=== PATIENT | male | born 1945 | race Caucasian/White ===

== ENCOUNTER 2020-05-03 13:39 | Inpatient (IN) | payer MEDICARE, SELFPAY ==
[2020-05-03 13:42] VITALS: BP 138/78; PULSE 81; RESP 17; TEMP 36.6; O2SAT 98; BMI 24.3
[2020-05-03 14:59] LABS: Absolute Lymphocyte Count 0.84 X10^3/uL (0.83-4.51); Absolute Neutrophil Count 3.4 X10^3/uL (2.0-7.7); Basophil# 0.04 X10^3/uL; Basophil% 0.8 % (0-1); Eosinophil# 0.09 X10^3/uL; Eosinophils% 1.9 % (0-5); Hematocrit 41.8 % (40-54); Hemoglobin 13.5 g/dL (13.0-16.5); Lymphocyte # 0.84 X10^3/ul (4.0); Lymphocyte % 17.3 % (19-41); Mean Corp Hgb Conc 32.3 g/dL (32-36); Mean Corpuscular Hgb 32.3 pg (27.0-32.0); Mean Platelet Vol. 8.5 fl (6.2-12.0); Monocyte# 0.48 X10^3/uL; Monocyte% 9.9 % (0-10); NRBC Flagged by Analyzer 0 % (0-5); Neutrophil # 3.38 X10^3/uL (2.7-7.7); Neutrophil % 69.7 % (47-70); Platelet Count 263 K/mm3 (150-450); RBC Distribution Width CV 13.7 % (11.6-14.6); RBC Distribution Width SD 50.4 fl (35.1-43.9); Red Blood Count 4.18 M/mm3 (4.6-6.2); White Blood Count 4.9 K/mm3 (4.4-11.0)
[2020-05-03 15:21] LABS: ALB/GLOB Ratio 0.9 RATIO (0.9-2.4); AST(SGOT) 70 U/L (15-37); Alanine Aminotransfer ALT/SGPT 49 U/L (16-61); Albumin, Serum 3.5 g/dL (3.2-5.0); Alkaline Phosphatase 72 U/L (45-117); Anion Gap 5 (5-15); BUN 8 mg/dL (7-18); BUN/Creat Ratio 10.7 RATIO (10-20); Chloride 104 mmol/L (98-107); Creatinine, Serum 0.75 mg/dL (0.70-1.30); EST Glomerular Filtration Rate 108 mL/min (>60); Est Glom Filt Rate - Afr Amer 130 mL/min (>60); Estimated Creatinine Clearance 58.76 ml/min; Globulin 3.9 g/dL (2.2-4.2); Glucose 82 mg/dL (74-106); Protein, Total 7.4 g/dL (6.4-8.2); Sodium Level 139 mmol/L (136-145)
--- NOTE | 2020-05-03 15:34 | ED.VIS.GEN ---
History of Present Illness Chief Complaint: Substance Abuse Informant: Patient Narrative: Patient is a 74-year-old male who presents to the emergency department for detoxification from alcohol abuse. He states that he drinks 20 ounces of vodka per day. He has been doing this for his entire life. He states he is never gone through withdrawal as he has never stopped drinking. His last drink was a few hours ago. Currently denies any symptoms whatsoever. He denies any issues with drug abuse. Does not smoke cigarettes. His reasoning for wanting to quit at this point he states that it now feels like a life and situation to him. Past Medical History - Allergies and Home Meds Allergies/Adverse Reactions: Allergies No Known Allergies Allergy (Verified 05/03/20 13:41) Prior records reviewed: Yes Past Medical History: None Smoking Status: Never smoker Alcohol: Heavy Drugs: None - Family History Maternal Family History: Reports: No pertinent history Paternal Family History: Reports: No pertinent history Review of Systems All systems negative except as indicated General: Denies: Chills, Fever, Sweats Eyes: Reports: Diplopia - Has had a few episodes but none currently.. Denies: Visual changes - bilaterally ENT: Denies: Rhinorrhea, Sore throat Cardiovascular: Denies: Chest pain, Palpitations Respiratory: Denies: Dyspnea, Cough, Dyspnea on exertion Gastrointestinal: Denies: Abdominal pain, Nausea, Vomiting, Diarrhea Genitourinary: Denies: Dysuria, Hematuria, Frequency Musculoskeletal: Denies: Back pain, Extremity Pain Skin: Denies: Rash, Wounds Neurological: Denies: Headache, Weakness, Numbness Physical Exam Vital Signs/Narrative: Vital Signs Temp Pulse Resp BP Pulse Ox 05/03/20 13:42 97.8 F 81 17 138/78 H 98 General: Well nourished, Well developed, No Acute Distress Head: Normocephalic, Atraumatic Eyes: Perrl, EOMI ENT: Moist mucous membranes, No rhinorrhea Neck: Supple, Nontender Cardiovascular: Regular rate, Regular rhythm, No murmurs Respiratory: No distress, CTA bilaterally, Chest nontender Abdomen: Soft, Nontender, Nondistended, Normal bowel sounds Back: Nontender, Normal Inspection Extremities: Nontender, No edema Skin: Normal color, No rash Neurological: Alert, Oriented x3, Cranial nerves II-XII grossly intact, Normal Strength, Normal Sensation Psychological: Normal affect, Normal Mood Diagnostic/Tx/Re-eval - Medical Decision Making Patient presents to the ED for requesting to detox from alcohol abuse. Upon arrival to the ED vital signs within normal limits and he is in no acute distress. Basic lab work being obtained. We will plan on admission to the hospital for further evaluation and management. Patient understands and is agreeable this plan. Lab work did not reveal any significant acute abnormality. He is currently intoxicated with a blood alcohol level of 200. He otherwise has been stable throughout ED stay. Case discussed with hospitalist. ED Disposition - Plan for ED Patient: Disposition: Acute [facility] Diagnosis: Alcohol abuse, Alcohol intoxication
[2020-05-03 15:53] LABS: Amphetamine Urine VISTA NEGATIVE (<1000 ng/mL); Barbiturate Urine VISTA NEGATIVE (< 200 ng/mL); Benzodiazepine Urine VISTA NEGATIVE (< 200 ng/mL); Cocaine Urine VISTA NEGATIVE (< 300 ng/mL); Ecstacy Urine VISTA NEGATIVE (< 500 ng/mL); Methadone Urine VISTA NEGATIVE (< 300 ng/mL); PCP Urine VISTA NEGATIVE (< 25 ng/mL); THC Urine VISTA NEGATIVE (< 50 ng/mL); Vista UDS pH Range 6
--- NOTE | 2020-05-03 16:23 | CM.ED ---
Social Work Consult: Substance Abuse Informant: Self Referral Met with patient in room. Introduced self and social science teacher role. Patient agreeable to speaking with this social science teacher. Patient voices to be seeking medical management of withdrawal symptoms. Patient reports substance of choice is alcohol (vodka). Patient denies any history of detox. Patient states to have reached out to substance abuse resources in late 2019 and has a support network. Patient lives at home with spouse. Patient states main motivation for seeking detox is due to medical complications from drinking. Active support and listening provided. Patient verbally agreeing to [facility] program. Telephone call to Lolis Pope. Lolis updated on patient admission. Lolis pat plan to see patient tomorrow. Silverio Dickinson MSW, REINIER-S
[2020-05-03 16:27] VITALS: BP 149/84; PULSE 89; RESP 18; TEMP 36.7; O2SAT 97
[2020-05-03 16:58] VITALS: BMI 23.9
[2020-05-03 17:04] VITALS: BMI 24.0
--- NOTE | 2020-05-03 17:19 | PCM.HP.STD ---
History of Present Illness Date of Admission: 05/03/20 Chief Complaint: acute alcohol withdrawal The patient is a 74 year old M with a past medical history of chronic alcohol dependence. He was admitted through the ED on 05/03/2020 acute alcohol withdrawal. Patient states he has been drinking for as long as he remembers and usually drinks 20 ounces of vodka daily mixed with lemonade. He has never gone through withdrawal as he has never stopped drinking. His last drink was on the afternoon of the day of admission. Patient states he recently had a checkup done and he was told that his liver enzymes were abnormal. He says he has been trying to get help with detox but was told not to quit cold turkey on his own and that is why he is continued drinking. He denied any fever, chills, palpitations or dizziness, nausea vomiting, chest pain, tremors or diarrhea. Review of systems otherwise negative. He does not use any recreational drugs and does not smoke. ED, vitals showed temperature of 98.1 Fahrenheit with blood pressure of 149/84 and pulse rate of 89 as well as respiratory rate of 18. Pulse ox was 97% on room air. Chemistry was essentially unremarkable and liver enzymes showed AST of 70 with ALT of 49 and total bilirubin of 0.5. CBC was essentially unremarkable today. Urine tox was negative and alcohol level was 200. He has been admitted to manage for acute alcohol withdrawal. [] Past Medical History Allergies No Known Allergies Allergy (Verified 05/03/20 13:41) Home Medications: Ambulatory Orders Medication Instructions Recorded Cyanocobalamin (Vitamin B-12) 1,000 mcg PO DAILY 05/03/20 [Vitamin B-12] Oxybutynin [Ditropan] 5 mg PO TID 05/03/20 Psyllium Husk [Metamucil] 0.4 gm PO DAILY 05/03/20 Surgical History: total knee arthroplasty Psychiatric History: No pertinent psych hx Lives: With Family Smoking Status: Never smoker Tobacco Use: Non-smoker Alcohol: Heavy Drugs: None - *Family History Maternal History Items: No pertinent history Paternal History Items: No pertinent history Review of Systems Constitutional: Denies: Chills, Fever, Malaise, Weakness, Weight Change, Fatigue Eyes: Denies: Blurred vision HEENT: Denies: Head Aches, Sinus Congestion, Sinus Drainage Cardiovascular: Denies: Chest Pain, Chest Pressure, Heaviness, Light Headedness, Palpitations Respiratory: Denies: Cough, Shortness of Breath, Shortness of breath at rest, Shortness of breath upon exertion, Sputum production Gastrointestinal: Denies: Abdominal Pain, Nausea, Vomiting Genitourinary: Denies: Dysuria Musculoskeletal: Denies: Joint Pain, Joint Tenderness Skin: Denies: Rash, Wounds Neurological: Denies: Numbness, Tingling, Focal weakness Psychiatric: Denies: Anxiety, Depression, Homicidal Ideations, Suicidal Ideations Hematologic/ Lymphatic: Denies: Easy Bruising, Easy Bleeding VTE Information - Inpt Only VTE Present on Admission: No VTE Pharm Prophylaxis ordered?: Yes Patient Problems: Active and Suspected Problems Alcohol abuse (Acute) - Physical Exam Vitals/I&O's: Vital Signs Temp Pulse Resp BP Pulse Ox 98.1 F 89 18 149/84 H 97 05/03/20 16:27 05/03/20 16:27 05/03/20 16:27 05/03/20 16:27 05/03/20 16:27 Oxygen Delivery Method Room Air Weight: 153 lb Body Mass Index (BMI) 23.9 General: Alert, Oriented x3, Cooperative HEENT: Atraumatic, PERRLA, EOMI, Normocephalic Oral: Moist Mucosa Neck: Supple, No JVD, Negative Carotid Bruits Lungs: Clear to auscultation, Normal air movement, No rhonchi, No wheeze, No rales Cardiovascular: Regular rate, Regular Rhythm, Normal S1, Normal S2, No murmurs Abdomen: Bowel Sounds Present, Soft, Non Tender, Non-Distended, No Hepato-splenomegaly Extremities: No clubbing, No cyanosis, No edema, Capillary Refill Less than 3 Seconds Skin: No rashes Musculoskeletal: No Tenderness to Palpation of Joints or Extremities Lymphatic: No Cervical, Supraclavicular, or Inguinal Adenopathy Neurological: Cranial nerves II-XII grossly intact, Neuro grossly intact, Motor Exam 5/5 strength throughout Psych/Mental Status: Normal Affect, Appropriate, Alert and oriented to time, place, person, mood and affect Laboratory Results 05/03/20 14:50: WBC 4.9, RBC 4.18 L, Hgb 13.5, Hct 41.8, MCV 100.0 H, MCH 32.3 H, MCHC 32.3, RDW Std Deviation 50.4 H, RDW Coeff of Yoana 13.7, Plt Count 263, MPV 8.5, Immature Gran % (Auto) 0.400, Neut % (Auto) 69.7, Lymph % (Auto) 17.3 L, [place] % (Auto) 9.9, Eos % (Auto) 1.9, Baso % (Auto) 0.8, Absolute Neuts (auto) 3.4, Absolute Lymphs (auto) 0.84, Nucleated RBC % 0 05/03/20 14:50: Sodium 139, Potassium 4.0, Chloride 104, Carbon Dioxide 30.0, Anion Gap 5, BUN 8, Creatinine 0.75, Estim Creat Clear Calc 58.76, Est GFR (MDRD) Af Amer 130, Est GFR (MDRD) Non-Af 108, BUN/Creatinine Ratio 10.7, Glucose 82, Calcium 9.0, Total Bilirubin 0.50, AST 70 H, ALT 49, Alkaline Phosphatase 72, Total Protein 7.4, Albumin 3.5, Globulin 3.9, Albumin/Globulin Ratio 0.9 05/03/20 14:50: Ethyl Alcohol 200.0 05/03/20 15:25: Urine Opiates Screen NEGATIVE, Urine Methadone Screen NEGATIVE, Ur Barbiturates Screen NEGATIVE, Ur Phencyclidine Scrn NEGATIVE, Ur Amphetamines Screen NEGATIVE, U Methamphetamin-MDMA NEGATIVE, U Benzodiazepines Scrn NEGATIVE, Urine Cocaine Screen NEGATIVE, U Cannabinoids Screen NEGATIVE, Ur Drug Screen Comment Current Medications Sodium Chloride () 10 - 40 ml IV UD PRN PRN Reason: SALINE FLUSH Assessment/Plan All Active Problems Alcohol abuse (Acute) 74-year-old male admitted for acute alcohol withdrawal # Acute alcohol withdrawal Admit to [facility] Serum alcohol level is 200. Urine tox otherwise negative. Start patient on acute alcohol withdrawal with phenobarbital. P.o. thiamine, multivitamin and vitamin B12. Monitor CIWA score DVT prophylaxis; low risk, encourage to ambulate Inpatient E&M: 64030 Init Hosp L3
[2020-05-03 17:28] VITALS: BP 157/94; PULSE 89; RESP 18; TEMP 36.9; O2SAT 100
[2020-05-03] MEDS: Phenobarbital 32.4 MG Tablet 64.8 MG PO ×2 (19:44→23:36)
[2020-05-03 19:45] VITALS: BP 116/74; PULSE 91; RESP 18; TEMP 36.9; O2SAT 95
[2020-05-03] MEDS: Oxybutynin 5 MG Tablet PO (22:06)
[2020-05-03 23:30] VITALS: BP 126/79; PULSE 93; RESP 18; TEMP 36.7; O2SAT 98
[2020-05-04] MEDS: Phenobarbital 32.4 MG Tablet 64.8 MG PO ×6 (03:28→21:54)
[2020-05-04 03:30] VITALS: BP 130/84; PULSE 84; RESP 18; TEMP 36.3; O2SAT 96
[2020-05-04] MEDS: Oxybutynin 5 MG Tablet PO ×3 (06:48→21:54)
[2020-05-04 07:07] LABS: ALB/GLOB Ratio 0.9 RATIO (0.9-2.4); AST(SGOT) 44 U/L (15-37); Alanine Aminotransfer ALT/SGPT 40 U/L (16-61); Albumin, Serum 3.1 g/dL (3.2-5.0); Alkaline Phosphatase 64 U/L (45-117); Anion Gap 5 (5-15); BUN 15 mg/dL (7-18); BUN/Creat Ratio 18.7 RATIO (10-20); Calcium,Total 8.9 mg/dL (8.5-10.1); Chloride 104 mmol/L (98-107); EST Glomerular Filtration Rate 99 mL/min (>60); Est Glom Filt Rate - Afr Amer 120 mL/min (>60); Estimated Creatinine Clearance 73.44 ml/min; Globulin 3.5 g/dL (2.2-4.2); Glucose 80 mg/dL (74-106); Potassium 3.9 mmol/L (3.5-5.1); Protein, Total 6.6 g/dL (6.4-8.2); Sodium Level 138 mmol/L (136-145)
[2020-05-04 07:35] VITALS: PULSE 76
[2020-05-04 08:07] VITALS: BP 134/73; PULSE 73; RESP 18; TEMP 36.4; O2SAT 97
[2020-05-04] MEDS: Folic Acid 1 MG Tablet PO (08:09)
[2020-05-04] MEDS: Cyanocobalamin 500 MCG Tablet 1000 MCG PO (08:09)
[2020-05-04] MEDS: Multivitamins,Ther W-Minerals Tablet 1 TABLET PO (08:09)
[2020-05-04] MEDS: Thiamine Hydrochloride 100 MG Tablet PO ×2 (08:09→15:38)
--- NOTE | 2020-05-04 12:18 | PCM.PROGNOTE ---
Patient Problems: Active and Suspected Problems Alcohol abuse (Acute) Alcohol intoxication (Acute) Subjective: Patient was seen and examined today, he does not complain of any excessive nervousness or tremor, he is not short of breath or complain of any chest pain. Patient would like to take a shower and would like Metamucil which I ordered. - Physical Exam Vitals/I&O's: Vital Signs Temp Pulse Resp BP Pulse Ox 97.6 F L 73 18 134/73 H 97 05/04/20 08:07 05/04/20 08:07 05/04/20 08:07 05/04/20 08:07 05/04/20 08:07 Oxygen Delivery Method Room Air Weight: 69.4 kg Body Mass Index (BMI) 23.9 Intake and Output for Last 24 Hours 05/02/20 05/03/20 05/04/20 23:59 23:59 23:59 Intake Total 500 / 500 610 / 610 Balance 500 / 500 610 / 610 General: Alert, Oriented x3, Cooperative, No apparent distress, Well developed, Well nourished HEENT: Atraumatic, PERRLA, EOMI, Normocephalic Oral: Moist Mucosa Neck: Supple, Trachea Midline, Thyroid Normal Size and Texture Lungs: Clear to auscultation, Normal air movement, No rhonchi, No wheeze, No rales Cardiovascular: Regular rate, Regular Rhythm, Normal S1, No murmurs, PMI Normal, No rub noted, No Gallop Abdomen: Bowel Sounds Present, Soft, Non Tender, Non-Distended Extremities: No clubbing, No cyanosis, No edema, Capillary Refill Less than 3 Seconds Skin: No rashes, No breakdown Musculoskeletal: No Tenderness to Palpation of Joints or Extremities Neurological: Cranial nerves II-XII grossly intact, Neuro grossly intact, Sensory exam intact to light touch and pain, Coordination normal Psych/Mental Status: Normal Affect, Appropriate, Alert and oriented to time, place, person, mood and affect Laboratory Results 05/03/20 14:50: WBC 4.9, RBC 4.18 L, Hgb 13.5, Hct 41.8, MCV 100.0 H, MCH 32.3 H, MCHC 32.3, RDW Std Deviation 50.4 H, RDW Coeff of Yoana 13.7, Plt Count 263, MPV 8.5, Immature Gran % (Auto) 0.400, Neut % (Auto) 69.7, Lymph % (Auto) 17.3 L, [place] % (Auto) 9.9, Eos % (Auto) 1.9, Baso % (Auto) 0.8, Absolute Neuts (auto) 3.4, Absolute Lymphs (auto) 0.84, Nucleated RBC % 0 05/03/20 14:50: Sodium 139, Potassium 4.0, Chloride 104, Carbon Dioxide 30.0, Anion Gap 5, BUN 8, Creatinine 0.75, Estim Creat Clear Calc 58.76, Est GFR (MDRD) Af Amer 130, Est GFR (MDRD) Non-Af 108, BUN/Creatinine Ratio 10.7, Glucose 82, Calcium 9.0, Total Bilirubin 0.50, AST 70 H, ALT 49, Alkaline Phosphatase 72, Total Protein 7.4, Albumin 3.5, Globulin 3.9, Albumin/Globulin Ratio 0.9 05/03/20 14:50: Ethyl Alcohol 200.0 05/03/20 15:25: Urine Opiates Screen NEGATIVE, Urine Methadone Screen NEGATIVE, Ur Barbiturates Screen NEGATIVE, Ur Phencyclidine Scrn NEGATIVE, Ur Amphetamines Screen NEGATIVE, U Methamphetamin-MDMA NEGATIVE, U Benzodiazepines Scrn NEGATIVE, Urine Cocaine Screen NEGATIVE, U Cannabinoids Screen NEGATIVE, Ur Drug Screen Comment 05/04/20 05:20: Sodium 138, Potassium 3.9, Chloride 104, Carbon Dioxide 29.0, Anion Gap 5, BUN 15, Creatinine 0.80, Estim Creat Clear Calc 73.44, Est GFR (MDRD) Af Amer 120, Est GFR (MDRD) Non-Af 99, BUN/Creatinine Ratio 18.7, Glucose 80, Calcium 8.9, Total Bilirubin 1.10 H, AST 44 H, ALT 40, Alkaline Phosphatase 64, Total Protein 6.6, Albumin 3.1 L, Globulin 3.5, Albumin/Globulin Ratio 0.9 Current Medications Cyanocobalamin (Vitamin B12) 1,000 mcg PO DAILY [facility] Last Admin: 05/04/20 08:09 Dose: 1,000 mcg Documented by: Folic Acid (Folic Acid) 1 mg PO DAILY@0800 [facility] Stop: 05/06/20 08:01 Last Admin: 05/04/20 08:09 Dose: 1 mg Documented by: Loperamide HCl (Imodium) 2 mg PO Q4H PRN PRN PRN Reason: LOOSE STOOLS Lorazepam (Ativan) 2 mg PO Q2H PRN PRN; Protocol PRN Reason: CIWA score > 8 but <15 Lorazepam (Ativan) 2 mg PO UD PRN; Protocol PRN Reason: CIWA score >/=15. Lorazepam (Ativan) 2 mg IV Q2H PRN PRN; Protocol PRN Reason: CIWA score > 8 but <15 Lorazepam (Ativan) 2 mg IV UD PRN; Protocol PRN Reason: CIWA score >/=15. Multivitamins/Minerals ([facility]itamin With [facility] ([facility])) [facility] Last Admin: 05/04/20 08:09 Dose: 1 tablet Documented by: Ondansetron HCl (Zofran) 4 mg IV Q8H PRN PRN PRN Reason: NAUSEA/VOMITING Oxybutynin Chloride (Ditropan) 5 mg PO TID [facility] Last Admin: 05/04/20 06:48 Dose: 5 mg Documented by: Phenobarbital (Phenobarbital) 97.2 mg PO Q4H [facility]; Taper Stop: 05/08/20 02:59 Last Admin: 05/04/20 11:10 Dose: 97.2 mg Documented by: Psyllium Hydrophilic Mucilloid (Metamucil) 1 packet PO DAILY [facility] Sodium Chloride () 10 - 40 ml IV UD PRN PRN Reason: SALINE FLUSH Thiamine HCl (Vitamin B1) 100 mg PO BIDCM [facility] Stop: 05/06/20 17:01 Last Admin: 05/04/20 08:09 Dose: 100 mg Documented by: Medical Necessity - Tobacco Use Smoking Status: Never smoker Tobacco Use: Non-smoker Assessment/Plan All Active Problems Alcohol abuse (Acute) Alcohol intoxication (Acute) #1 acute alcohol withdrawal-continue present medications #2 chronic alcoholism #3 possible overactive bladder-patient is taking Ditropan, I will inquire as to why he is on it. Inpatient E&M: 13017 [facility] Hosp L2
[2020-05-04] MEDS: Psyllium 1 PACKET PO (13:48)
[2020-05-04 14:00] VITALS: BP 113/76; PULSE 85; RESP 16; TEMP 37.3; O2SAT 96
[2020-05-04 19:58] VITALS: BP 114/68; PULSE 75; RESP 16; TEMP 36.7; O2SAT 96
[2020-05-05 02:13] VITALS: BP 134/81; PULSE 67; RESP 16; TEMP 36.5; O2SAT 97
[2020-05-05] MEDS: Phenobarbital 32.4 MG Tablet 64.8 MG PO ×6 (02:17→22:11)
[2020-05-05] MEDS: Oxybutynin 5 MG Tablet PO ×3 (06:04→20:44)
[2020-05-05 09:02] VITALS: BP 103/71; PULSE 91; RESP 18; TEMP 36.6; O2SAT 95
[2020-05-05] MEDS: Psyllium 1 PACKET PO (09:04)
[2020-05-05] MEDS: Folic Acid 1 MG Tablet PO (09:04)
[2020-05-05] MEDS: Multivitamins,Ther W-Minerals Tablet 1 TABLET PO (09:05)
[2020-05-05] MEDS: Cyanocobalamin 500 MCG Tablet 1000 MCG PO (09:05)
[2020-05-05] MEDS: Thiamine Hydrochloride 100 MG Tablet PO ×2 (09:05→18:35)
--- NOTE | 2020-05-05 11:38 | PCM.PROGNOTE ---
Patient Problems: Active and Suspected Problems Alcohol abuse (Acute) Alcohol intoxication (Acute) Subjective: She was seen and examined today, he denies any tremor or muscle pain. Patient denies any sleepiness on his present medications. Patient states that he was drinking 1.5 L of half-strength vodka at home prior to coming in here. He is going to be following up with [facility] which has an IOP program. This is in the [facility]. Objective: General: Alert, Oriented x3, Cooperative, No apparent distress, Well developed, Well nourished HEENT: Atraumatic, PERRLA, EOMI, Normocephalic Oral: Moist Mucosa Neck: Supple, Trachea Midline, Thyroid Normal Size and Texture Lungs: Clear to auscultation, Normal air movement, No rhonchi, No wheeze, No rales Cardiovascular: Regular rate, Regular Rhythm, Normal S1, No murmurs, PMI Normal, No rub noted, No Gallop Abdomen: Bowel Sounds Present, Soft, Non Tender, Non-Distended Extremities: No clubbing, No cyanosis, No edema, Capillary Refill Less than 3 Seconds Skin: No rashes, No breakdown Musculoskeletal: No Tenderness to Palpation of Joints or Extremities Neurological: Cranial nerves II-XII grossly intact, Neuro grossly intact, Sensory exam intact to light touch and pain, Coordination normal Psych/Mental Status: Normal Affect, Appropriate, Alert and oriented to time, place, person, mood and affect - Physical Exam Vitals/I&O's: Vital Signs Temp Pulse Resp BP Pulse Ox 97.8 F 91 18 103/71 95 05/05/20 09:02 05/05/20 09:02 05/05/20 09:02 05/05/20 09:02 05/05/20 09:02 Oxygen Delivery Method Room Air Weight: 69.4 kg Body Mass Index (BMI) 23.9 Intake and Output for Last 24 Hours 05/03/20 05/04/20 05/05/20 23:59 23:59 23:59 Intake Total 500 / 500 970 / 970 Balance 500 / 500 970 / 970 Current Medications Cyanocobalamin (Vitamin B12) 1,000 mcg PO DAILY [facility] Last Admin: 05/05/20 09:05 Dose: 1,000 mcg Documented by: Folic Acid (Folic Acid) 1 mg PO DAILY@0800 [facility] Stop: 05/06/20 08:01 Last Admin: 05/05/20 09:04 Dose: 1 mg Documented by: Loperamide HCl (Imodium) 2 mg PO Q4H PRN PRN PRN Reason: LOOSE STOOLS Lorazepam (Ativan) 2 mg PO Q2H PRN PRN; Protocol PRN Reason: CIWA score > 8 but <15 Lorazepam (Ativan) 2 mg PO UD PRN; Protocol PRN Reason: CIWA score >/=15. Lorazepam (Ativan) 2 mg IV Q2H PRN PRN; Protocol PRN Reason: CIWA score > 8 but <15 Lorazepam (Ativan) 2 mg IV UD PRN; Protocol PRN Reason: CIWA score >/=15. Multivitamins/Minerals ([facility])) [facility] Admin: 05/05/20 09:05 Dose: 1 tablet Documented by: Ondansetron HCl (Zofran) 4 mg IV Q8H PRN PRN PRN Reason: NAUSEA/VOMITING Oxybutynin Chloride (Ditropan) 5 mg PO TID [facility] Last Admin: 05/05/20 06:04 Dose: 5 mg Documented by: Phenobarbital (Phenobarbital) 64.8 mg PO Q4H [facility]; Taper Stop: 05/08/20 02:59 Last Admin: 05/05/20 06:04 Dose: 64.8 mg Documented by: Psyllium Hydrophilic Mucilloid (Metamucil) 1 packet PO DAILY [facility] Last Admin: 05/05/20 09:04 Dose: 1 packet Documented by: Sodium Chloride () 10 - 40 ml IV UD PRN PRN Reason: SALINE FLUSH [facility] Stop: 05/06/20 17:01 Last Admin: 05/05/20 09:05 Dose: 100 mg Documented by: Medical Necessity - Tobacco Use Smoking Status: Never smoker Tobacco Use: Non-smoker Assessment/Plan All Active Problems Alcohol abuse (Acute) Alcohol intoxication (Acute) #1 acute alcohol withdrawal-continue present medications, patient does not appear lethargic or sedated on these medications #2 chronic alcoholism #3 Urinary incontinence-mild, patient takes Ditropan 5 mg 3 times daily for this. He believes this is secondary to prostate surgery. Inpatient E&M: 10522 [facility] Hosp L2
[2020-05-05 14:40] VITALS: BP 124/74; PULSE 75; RESP 16; TEMP 36.4; O2SAT 99
[2020-05-05 20:40] VITALS: BP 122/72; PULSE 77; RESP 16; TEMP 36.7; O2SAT 97
[2020-05-06 02:39] VITALS: BP 108/72; PULSE 71; RESP 16; TEMP 36.4; O2SAT 97
[2020-05-06] MEDS: Phenobarbital 32.4 MG Tablet 64.8 MG PO ×2 (02:44→08:21)
[2020-05-06] MEDS: Oxybutynin 5 MG Tablet PO ×3 (05:20→21:56)
[2020-05-06 08:18] VITALS: BP 104/69; PULSE 92; RESP 16; TEMP 36.6; O2SAT 99
[2020-05-06] MEDS: Folic Acid 1 MG Tablet PO (08:22)
[2020-05-06] MEDS: Thiamine Hydrochloride 100 MG Tablet PO ×2 (08:22→17:03)
[2020-05-06] MEDS: Multivitamins,Ther W-Minerals Tablet 1 TABLET PO (08:22)
--- NOTE | 2020-05-06 09:28 | CASEMGMT ---
Social Work Note SW reviewed chart. It appears [facility] saw pt and plan is for pt to do outpatient counseling at [facility]. Lynn Menard CONE PICKER, CAREER DEVELOPMENT ENGINEER
[2020-05-06] MEDS: Cyanocobalamin 500 MCG Tablet 1000 MCG PO (09:46)
[2020-05-06] MEDS: Psyllium 1 PACKET PO (09:46)
--- NOTE | 2020-05-06 11:20 | PCM.PROGNOTE ---
Patient Problems: Active and Suspected Problems Alcohol abuse (Acute) Alcohol intoxication (Acute) Subjective: Patient was seen and examined today, he states that he feels a little off balance walking, I suggested that we taper his phenobarbital down a little bit quicker then what he presently is on. He did not have objections to this. Patient is still planning to go into an IOP program at [facility] on discharge from the hospital. Patient has no complaints of any tremor or nervousness. - Physical Exam Vitals/I&O's: Vital Signs Temp Pulse Resp BP Pulse Ox 97.9 F 92 16 104/69 99 05/06/20 08:18 05/06/20 08:18 05/06/20 08:18 05/06/20 08:18 05/06/20 08:18 Oxygen Delivery Method Room Air Weight: 69.4 kg Body Mass Index (BMI) 23.9 Intake and Output for Last 24 Hours 05/04/20 05/05/20 05/06/20 23:59 23:59 23:59 Intake Total 970 / 970 1420 / 1420 Balance 970 / 970 1420 / 1420 General: Alert, Oriented x3, Cooperative, No apparent distress, Well developed, Well nourished HEENT: Atraumatic, PERRLA, EOMI, Normocephalic Oral: Moist Mucosa Neck: Supple, Trachea Midline, Thyroid Normal Size and Texture Lungs: Clear to auscultation, Normal air movement, No rhonchi, No wheeze, No rales Cardiovascular: Regular rate, Regular Rhythm, Normal S1, Normal S2, No murmurs, PMI Normal, No rub noted, No Gallop Abdomen: Bowel Sounds Present, Soft, Non Tender, Non-Distended Extremities: No clubbing, No cyanosis, No edema, Capillary Refill Less than 3 Seconds Skin: No rashes, No breakdown Musculoskeletal: No Tenderness to Palpation of Joints or Extremities Neurological: Cranial nerves II-XII grossly intact, Neuro grossly intact, Muscle tone normal, Sensory exam intact to light touch and pain Psych/Mental Status: Normal Affect, Appropriate, Alert and oriented to time, place, person, mood and affect Current Medications Cyanocobalamin (Vitamin B12) 1,000 mcg PO DAILY [facility] Last Admin: 05/06/20 09:46 Dose: 1,000 mcg Documented by: Loperamide HCl (Imodium) 2 mg PO Q4H PRN PRN PRN Reason: LOOSE STOOLS Lorazepam (Ativan) 2 mg PO Q2H PRN PRN; Protocol PRN Reason: CIWA score > 8 but <15 Lorazepam (Ativan) 2 mg PO UD PRN; Protocol PRN Reason: CIWA score >/=15. Lorazepam (Ativan) 2 mg IV Q2H PRN PRN; Protocol PRN Reason: CIWA score > 8 but <15 Lorazepam (Ativan) 2 mg IV UD PRN; Protocol PRN Reason: CIWA score >/=15. Multivitamins/Minerals ([facility]ivitamin With Minerals (Bkc)) [facility] Last Admin: 05/06/20 08:22 Dose: 1 tablet Documented by: Ondansetron HCl (Zofran) 4 mg IV Q8H PRN PRN PRN Reason: NAUSEA/VOMITING Oxybutynin Chloride (Ditropan) 5 mg PO TID [facility] Last Admin: 05/06/20 05:20 Dose: 5 mg Documented by: Phenobarbital (Phenobarbital) 32.4 mg PO TID [facility] Psyllium Hydrophilic Mucilloid (Metamucil) 1 packet PO DAILY [facility] Last Admin: 05/06/20 09:46 Dose: 1 packet Documented by: Sodium Chloride () 10 - 40 ml IV UD PRN PRN Reason: SALINE FLUSH Thiamine HCl (Vitamin B1) [facility] Stop: 05/06/20 17:01 Last Admin: 05/06/20 08:22 Dose: 100 mg Documented by: Medical Necessity - Tobacco Use Smoking Status: Never smoker Tobacco Use: Non-smoker Assessment/Plan All Active Problems Alcohol abuse (Acute) Alcohol intoxication (Acute) #1 acute alcohol withdrawal-again, I decreased his phenobarbital, will reevaluate. #2 chronic alcoholism #3 Urinary incontinence-mild, patient takes Ditropan 5 mg 3 times daily for this. He believes this is secondary to prostate surgery. Inpatient E&M: [id number] [facility] [[email or web address]] Hosp L2
[2020-05-06 13:40] VITALS: BP 98/62; PULSE 80; RESP 16; TEMP 36.6; O2SAT 98
[2020-05-06] MEDS: Phenobarbital 32.4 MG Tablet PO ×2 (13:56→21:56)
[2020-05-06 21:53] VITALS: BP 109/62; PULSE 74; RESP 16; TEMP 36.6; O2SAT 97
[2020-05-06 22:00] VITALS: PULSE 85; RESP 16; O2SAT 97
[2020-05-06 22:01] VITALS: BP 109/62; PULSE 74; RESP 16; TEMP 36.6; O2SAT 97
[2020-05-07 05:42] VITALS: BP 108/68; PULSE 74; RESP 16; TEMP 36.4; O2SAT 95
[2020-05-07 05:46] VITALS: BP 108/68; PULSE 74; RESP 16; TEMP 36.4; O2SAT 95
[2020-05-07] MEDS: Phenobarbital 32.4 MG Tablet PO ×2 (05:48→13:49)
[2020-05-07] MEDS: Oxybutynin 5 MG Tablet PO ×2 (05:48→13:49)
[2020-05-07 09:46] VITALS: BP 111/71; PULSE 76; RESP 18; TEMP 36.4; O2SAT 100
[2020-05-07] MEDS: Psyllium 1 PACKET PO (09:47)
[2020-05-07] MEDS: Cyanocobalamin 500 MCG Tablet 1000 MCG PO (09:47)
[2020-05-07] MEDS: Multivitamins,Ther W-Minerals Tablet 1 TABLET PO (09:47)
--- NOTE | 2020-05-07 10:12 | ADDICTION ---
Patient was asleep upon this securities underwriter's arrival- he has a d/c plan in place completed by other [facility] access [facility] employee. This information in located in his chart.
--- NOTE | 2020-05-07 10:25 | DCINST_ITS ---
- Discharge Diagnoses Current Active Problems: Current Active and Chronic Problems Alcohol abuse (Acute) Alcohol intoxication (Acute) You will use the following diet at home:: No restrictions Your food should be the consistency of: Regular Your liquids should be the consistency of: Regular/Thin Discharge Activity: Return to Normal Activity Weight Bearing Status: Full weight bearing Allergies/Adverse Reactions: Allergies No Known Allergies Allergy (Verified 05/03/20 13:41) Medications to take at Discharge Cyanocobalamin (Vitamin B-12) [Vitamin B-12] 1,000 mcg PO DAILY 05/03/20 Oxybutynin [Ditropan] 5 mg PO TID 05/03/20 Psyllium Husk [Metamucil] 0.4 gm PO DAILY 05/03/20 Primary Care Physician: Albert Chawla [Other] Please follow up with your Primary Care Physician in: as scheduled Test Results: Test results from this visit will be discussed in further detail at your follow- up appointment, if applicable. Please Follow Up With: Mahendra When: as directed
--- NOTE | 2020-05-07 11:50 | PHA.DC.MR ---
Pharmacy Service has performed discharge medication reconciliation for this patient. No new medications issued at time of discharge. medications reviewed are from previously reported home medications. Home Medications Cyanocobalamin (Vitamin B-12) [Vitamin B-12] 1,000 mcg PO DAILY 05/03/20 Oxybutynin [Ditropan] 5 mg PO TID 05/03/20 Psyllium Husk [Metamucil] 0.4 gm PO DAILY 05/03/20 The patient's discharge medication list was reviewed for discrepancies and discrepancies were resolved.
[2020-05-07 13:46] VITALS: BP 107/73; PULSE 65; RESP 18; TEMP 36.6; O2SAT 96
== END 2020-05-07 15:49 | disposition home or self-care (01) | DRG 897 ==
LOC: ED 15:37 → MS3 17:27
PROVIDERS: Emergency Medicine; Admitting Provider Student in an Organized Health Care Education/Training Program; Emergency Provider Emergency Medicine; Visit Provider Internal Medicine
DX: F10.239 Alcohol dependence with withdrawal, unspecified (principal); F10.229 Alcohol dependence with intoxication, unspecified; Y90.7 Blood alcohol level of 200-239 mg/100 ml; R32 Unspecified urinary incontinence
CPT/HCPCS: 36415; 80053; 80307; 80320; 85025; 99283; A4216; G0480